=== PATIENT | male | born 1955 | race Caucasian/White ===

== ENCOUNTER 2021-09-30 15:05 | Emergency (ER) | payer MEDICARE, OTHER ==
[2021-09-30] MEDS ORDERED: Dexamethasone 10 MG/ML VIAL ONE (16:01)
== END 2021-09-30 16:00 | disposition home or self-care (01) ==
LOC: CSHERS 15:05
DX: L29.9 Pruritus, unspecified (principal); F22 Delusional disorders; E05.90 Thyrotoxicosis, unspecified without thyrotoxic crisis or storm; E03.9 Hypothyroidism, unspecified; E78.5 Hyperlipidemia, unspecified; I10 Essential (primary) hypertension; I73.9 Peripheral vascular disease, unspecified; F17.220 Nicotine dependence, chewing tobacco, uncomplicated
CPT/HCPCS: 99282; J1100